=== PATIENT | male | born 1955 | race African-American/Black ===

== ENCOUNTER 2020-04-14 10:16 | Outpatient (REF) | payer MEDICARE, SELFPAY | END 2020-04-14 10:17 | disposition home or self-care (01) | LOC: HO.LAB 10:16 | PROVIDERS: Visit Provider Internal Medicine | DX: Z20.822 Contact with and (suspected) exposure to COVID-19 (principal) | CPT/HCPCS: 36415; C9803; U0003; U0005 ==

== ENCOUNTER 2020-04-28 08:34 | Outpatient (REF) | payer MEDICARE, SELFPAY | END 2020-04-28 08:35 | disposition home or self-care (01) | LOC: HO.LAB 08:34 | PROVIDERS: Visit Provider Internal Medicine | DX: Z20.822 Contact with and (suspected) exposure to COVID-19 (principal) | CPT/HCPCS: 36415; C9803; U0003; U0005 ==

== ENCOUNTER 2020-06-02 12:11 | Outpatient (REF) | payer MEDICARE, SELFPAY | END 2020-06-02 12:12 | disposition home or self-care (01) | LOC: HO.LAB 12:11 | PROVIDERS: Visit Provider Internal Medicine | DX: Z20.822 Contact with and (suspected) exposure to COVID-19 (principal) | CPT/HCPCS: 36415; C9803; U0003; U0005 ==

== ENCOUNTER 2021-05-07 09:35 | Outpatient (REF) | payer MEDICARE, SELFPAY ==
[2021-05-07 10:32] LABS: COVID-19 Test Negative (Negative)
== END 2021-05-07 09:36 | disposition home or self-care (01) ==
LOC: HO.LAB 09:35
PROVIDERS: Visit Provider Internal Medicine
DX: Z20.822 Contact with and (suspected) exposure to COVID-19 (principal)
CPT/HCPCS: 87635; C9803

== ENCOUNTER 2021-06-24 11:16 | Outpatient (REF) | payer MEDICARE, SELFPAY ==
[2021-06-24 12:06] LABS: COVID-19 Test Negative (Negative)
== END 2021-06-24 11:17 | disposition home or self-care (01) ==
LOC: HO.LAB 11:16
PROVIDERS: Visit Provider Internal Medicine
DX: Z20.822 Contact with and (suspected) exposure to COVID-19 (principal)
CPT/HCPCS: 87635; C9803

== ENCOUNTER 2021-07-06 07:50 | Outpatient (REF) | payer MEDICARE, SELFPAY ==
[2021-07-06 08:33] LABS: COVID-19 Test Negative (Negative)
== END 2021-07-06 07:51 | disposition home or self-care (01) ==
LOC: HO.LAB 07:50
PROVIDERS: Visit Provider Internal Medicine
DX: Z20.822 Contact with and (suspected) exposure to COVID-19 (principal)
CPT/HCPCS: 87635; C9803

== ENCOUNTER 2021-07-09 08:25 | Outpatient (REF) | payer MEDICARE, SELFPAY ==
[2021-07-09 08:38] LABS: MANUAL DIFF FLAG NO
[2021-07-09 08:58] LABS: Basophils Percent Auto 0.4 % (0-2); Eosinophils Percent Auto 0.6 % (0-4); Hematocrit 40.8 % (42.0-52.0); Hemoglobin 13.6 g/dl (14.0-18.0); Imm Gran Abs Auto 0.02 X10*3/uL (0.00-0.03); Imm Gran Pct Auto 0.3 % (0.0-0.4); Lymphocytes Absolute Auto 0.8 X10*3/uL (1.2-4.9); Lymphocytes Percent Auto 11.2 % (20-40); Mean Corpuscular HGB Conc 33.3 g/dl (31.0-36.0); Mean Corpuscular Hemoglobin 26.9 pg (27.0-33.0); Mean Corpuscular Volume 80.8 fL (80.0-98.0); Mean Platelet Volume 9.6 fL (9.4-12.4); Monocytes Absolute Auto 0.4 X10*3/uL (0.1-1.2); Monocytes Percent Auto 6.6 % (2-11); Neutrophils Absolute Auto 5.4 x10*3/uL (2.0-8.3); Neutrophils Percent Auto 80.9 % (45-73); Platelet Count 223 X10*3/uL (160-400); Red Blood Count 5.05 X10*6/uL (4.60-5.80); Red Cell Distribution Width 13.2 % (11.0-16.0); White Blood Count 6.7 X10*3/uL (4.8-10.8)
[2021-07-09 09:31] LABS: Alanine Aminotransferase 14 U/L (0-40); Alkaline Phosphatase 58 U/L (39-117); Anion Gap 11 (12-20); Aspartate Amino Transferase 21 U/L (5-37); Blood Urea Nitrogen 11 mg/dL (9-16); Calcium 9.6 mg/dL (8.4-10.2); Carbon Dioxide 30 mmol/L (22-29); Chloride 104 mmol/L (96-108); Cholesterol 115 mg/dL; Estimated Glomerular Filt Rate 50; Glucose Fasting 113 mg/dL (60-99); HDL Cholesterol 38 mg/dL; Iron 66 mcg/dL (45-160); LDL Cholesterol Calculated 63 mg/dl; Percent Iron Saturation 24 % (15-50); Potassium 3.7 mmol/L (3.3-5.1); Sodium 141 mmol/L (135-145); Total Iron Binding Capacity 277 mcg/dL (228-428); Total Protein 7.3 g/dL (6.5-8.0); Triglycerides 74 mg/dL; Unsaturated Iron Binding 211 ug/dL
[2021-07-09 09:51] LABS: Microalbum/Creatinine Ratio Ur 33.1 ug/mg cr
[2021-07-09 09:55] LABS: Vitamin D 25-OH Total 47.2 ng/mL (>30)
[2021-07-15 22:01] LABS: Testosterone, Free 69.5 pg/mL (35.0-155.0); Testosterone, Total 460 ng/dL (250-1100)
== END 2021-07-09 08:26 | disposition home or self-care (01) ==
LOC: HO.LAB 08:25
PROVIDERS: PCP Internal Medicine; Visit Provider Internal Medicine
DX: D50.9 Iron deficiency anemia, unspecified (principal); I10 Essential (primary) hypertension; E11.9 Type 2 diabetes mellitus without complications; E34.9 Endocrine disorder, unspecified; E55.9 Vitamin D deficiency, unspecified; E78.5 Hyperlipidemia, unspecified
CPT/HCPCS: 36415; 80053; 80061; 82043; 82306; 83540; 84402; 84403; 85025

== ENCOUNTER 2021-08-11 08:44 | Outpatient (REF) | payer MEDICARE, SELFPAY ==
[2021-08-11 09:17] LABS: COVID-19 Test Negative (Negative)
== END 2021-08-11 08:45 | disposition home or self-care (01) ==
LOC: HO.LAB 08:44
PROVIDERS: Visit Provider Internal Medicine
DX: Z20.822 Contact with and (suspected) exposure to COVID-19 (principal)
CPT/HCPCS: 87635; C9803

== ENCOUNTER 2021-12-15 07:28 | Outpatient (REF) | payer MEDICARE, SELFPAY ==
[2021-12-15 08:27] LABS: IDNOW Serial# 16C4AD1C
[2021-12-15 08:28] LABS: COVID-19 Test Negative (Negative)
== END 2021-12-15 07:29 | disposition home or self-care (01) ==
LOC: HO.LAB 07:28
PROVIDERS: Visit Provider Internal Medicine
DX: Z20.822 Contact with and (suspected) exposure to COVID-19 (principal)
CPT/HCPCS: 87635; C9803

== ENCOUNTER 2021-12-24 08:21 | Outpatient (REF) | payer MEDICARE, SELFPAY ==
[2021-12-24 08:52] LABS: MANUAL DIFF FLAG NO
[2021-12-24 09:14] LABS: Basophils Percent Auto 0.4 % (0-2); Eosinophils Absolute Auto 0.1 X10*3/uL (0.0-0.4); Eosinophils Percent Auto 1.2 % (0-4); Hematocrit 41.6 % (42.0-52.0); Hemoglobin 13.9 g/dl (14.0-18.0); Imm Gran Abs Auto 0.01 X10*3/uL (0.00-0.03); Imm Gran Pct Auto 0.2 % (0.0-0.4); Lymphocytes Absolute Auto 0.9 X10*3/uL (1.2-4.9); Lymphocytes Percent Auto 16.8 % (20-40); Mean Corpuscular HGB Conc 33.4 g/dl (31.0-36.0); Mean Corpuscular Hemoglobin 26.7 pg (27.0-33.0); Mean Corpuscular Volume 79.8 fL (80.0-98.0); Mean Platelet Volume 9.4 fL (9.4-12.4); Monocytes Absolute Auto 0.3 X10*3/uL (0.1-1.2); Monocytes Percent Auto 6.3 % (2-11); Neutrophils Absolute Auto 3.8 x10*3/uL (2.0-8.3); Neutrophils Percent Auto 75.1 % (45-73); Platelet Count 249 X10*3/uL (160-400); Red Blood Count 5.21 X10*6/uL (4.60-5.80); Red Cell Distribution Width 12.6 % (11.0-16.0); White Blood Count 5.1 X10*3/uL (4.8-10.8)
[2021-12-24 09:48] LABS: Alanine Aminotransferase 18 U/L (0-40); Albumin Level 4.2 g/dL (3.5-5.0); Alkaline Phosphatase 64 U/L (39-117); Anion Gap 14 (12-20); Aspartate Amino Transferase 23 U/L (5-37); Bilirubin Total 1.6 mg/dL (0.0-1.0); Blood Urea Nitrogen 12 mg/dL (9-16); Calcium 9.3 mg/dL (8.4-10.2); Carbon Dioxide 30 mmol/L (22-29); Chloride 99 mmol/L (96-108); Cholesterol 146 mg/dL; Estimated Glomerular Filt Rate 54; Glucose Fasting 130 mg/dL (60-99); HDL Cholesterol 42 mg/dL; Iron 91 mcg/dL (45-160); LDL Cholesterol Calculated 89 mg/dl; Percent Iron Saturation 30 % (15-50); Potassium 3.4 mmol/L (3.3-5.1); Sodium 140 mmol/L (135-145); Total Iron Binding Capacity 302 mcg/dL (228-428); Total Protein 7.7 g/dL (6.5-8.0); Triglycerides 79 mg/dL; Unsaturated Iron Binding 211 ug/dL
[2021-12-24 09:55] LABS: Vitamin D 25-OH Total 35.8 ng/mL (>30)
[2021-12-24 10:47] LABS: Creatinine Urine 139.63 mg/dL; Microalbum/Creatinine Ratio Ur 29.3 ug/mg cr
== END 2021-12-24 08:22 | disposition home or self-care (01) ==
LOC: HO.LAB 08:21
PROVIDERS: PCP Internal Medicine; Visit Provider Internal Medicine
DX: E11.9 Type 2 diabetes mellitus without complications (principal); E55.9 Vitamin D deficiency, unspecified; E78.5 Hyperlipidemia, unspecified; D64.9 Anemia, unspecified
CPT/HCPCS: 36415; 80053; 80061; 82043; 82306; 83540; 85025

== ENCOUNTER → 2022-06-09 10:02 | Outpatient (BNVA) | payer MEDICARE, SELFPAY | PROVIDERS: PCP Internal Medicine; Visit Provider Urology | DX: E11.69 Type 2 diabetes mellitus with other specified complication (principal); N52.1 Erectile dysfunction due to diseases classified elsewhere; E29.1 Testicular hypofunction; I10 Essential (primary) hypertension; Z79.899 Other long term (current) drug therapy | CPT/HCPCS: 99202 ==

== ENCOUNTER → 2022-07-20 08:46 | Outpatient (BNVA) | payer MEDICARE, SELFPAY | PROVIDERS: PCP Internal Medicine; Visit Provider Urology | DX: E11.69 Type 2 diabetes mellitus with other specified complication (principal); N52.1 Erectile dysfunction due to diseases classified elsewhere | CPT/HCPCS: 99212 ==

== ENCOUNTER → 2022-07-23 11:23 | Outpatient (BNVA) | payer MEDICARE, SELFPAY | PROVIDERS: PCP Internal Medicine; Visit Provider Urology | DX: E11.69 Type 2 diabetes mellitus with other specified complication (principal); N52.1 Erectile dysfunction due to diseases classified elsewhere | CPT/HCPCS: 99212 ==

== ENCOUNTER 2022-09-30 14:44 | Outpatient (AMB) | payer MEDICARE, SELFPAY ==
[2022-09-30 14:46] VITALS: BP 152/98; PULSE 84; O2SAT 97; BMI 27.7
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
== END 2022-09-30 15:19 | disposition home or self-care (01) ==
PROVIDERS: PCP Internal Medicine; Visit Provider Nurse Practitioner Family
DX: E11.9 Type 2 diabetes mellitus without complications (principal); I10 Essential (primary) hypertension; S06.9XAD Unspecified intracranial injury with loss of consciousness status unknown, subsequent encounter
CPT/HCPCS: 99213

== ENCOUNTER 2022-10-01 10:20 | Outpatient (REF) | payer MEDICARE, SELFPAY ==
[2022-10-01 10:34] LABS: MANUAL DIFF FLAG NO
[2022-10-01 11:53] LABS: Basophils Percent Auto 0.4 % (0-2); Eosinophils Absolute Auto 0.1 X10*3/uL (0.0-0.4); Eosinophils Percent Auto 1.7 % (0-4); Hemoglobin 13.4 g/dl (14.0-18.0); Imm Gran Abs Auto 0.02 X10*3/uL (0.00-0.03); Imm Gran Pct Auto 0.4 % (0.0-0.4); Lymphocytes Absolute Auto 0.9 X10*3/uL (1.2-4.9); Lymphocytes Percent Auto 18.4 % (20-40); Mean Corpuscular HGB Conc 33.5 g/dl (31.0-36.0); Mean Corpuscular Hemoglobin 26.8 pg (27.0-33.0); Mean Platelet Volume 10.2 fL (9.4-12.4); Monocytes Absolute Auto 0.3 X10*3/uL (0.1-1.2); Monocytes Percent Auto 7.2 % (2-11); Neutrophils Absolute Auto 3.4 x10*3/uL (2.0-8.3); Neutrophils Percent Auto 71.9 % (45-73); Platelet Count 252 X10*3/uL (160-400); Red Cell Distribution Width 13.2 % (11.0-16.0); White Blood Count 4.7 X10*3/uL (4.8-10.8)
[2022-10-01 12:28] LABS: Alanine Aminotransferase 19 U/L (0-40); Alkaline Phosphatase 64 U/L (39-117); Anion Gap 14 (12-20); Aspartate Amino Transferase 20 U/L (5-37); Bilirubin Total 1.3 mg/dL (0.0-1.0); Blood Urea Nitrogen 10 mg/dL (9-16); Carbon Dioxide 27 mmol/L (22-29); Chloride 104 mmol/L (96-108); Cholesterol 148 mg/dL; Estimated Glomerular Filt Rate 53; Glucose Fasting 114 mg/dL (60-99); HDL Cholesterol 45 mg/dL; Iron 77 mcg/dL (45-160); LDL Cholesterol Calculated 83 mg/dl; Percent Iron Saturation 29 % (15-50); Potassium 3.2 mmol/L (3.3-5.1); Sodium 142 mmol/L (135-145); Total Iron Binding Capacity 265 mcg/dL (228-428); Total Protein 7.5 g/dL (6.5-8.0); Triglycerides 104 mg/dL; Unsaturated Iron Binding 188 ug/dL
[2022-10-01 12:29] LABS: Creatinine Urine 233.06 mg/dL; Microalbum/Creatinine Ratio Ur 199.9 ug/mg cr
[2022-10-01 12:45] LABS: Vitamin D 25-OH Total 27.4 ng/mL (>30)
== END 2022-10-01 10:21 | disposition home or self-care (01) ==
LOC: HO.LAB 10:20
PROVIDERS: PCP Internal Medicine; Visit Provider Internal Medicine
DX: D64.9 Anemia, unspecified (principal); E11.9 Type 2 diabetes mellitus without complications; E55.9 Vitamin D deficiency, unspecified; E78.5 Hyperlipidemia, unspecified
CPT/HCPCS: 36415; 80053; 80061; 82043; 82306; 83540; 85025

== ENCOUNTER 2022-12-01 12:36 | Outpatient (REF) | payer MEDICARE, SELFPAY ==
--- NOTE | ~2022-12-01 | MR_ITS ---
EXAMINATION: MR BRAIN WITHOUT CONTRAST CLINICAL INFORMATION: Headaches and memory problems. COMPARISON: None. TECHNIQUE: Multiplanar, multisequence imaging of the brain was performed without contrast. FINDINGS: No diffusion abnormalities are identified to suggest an acute or subacute infarct. There is moderate generalized parenchymal volume loss and concordant ex vacuo prominence of the ventricles. No mass effect or midline shift is seen. Fobm-mk-lcttdqsv chronic white matter microangiopathic changes noted. No extra-axial fluid collections are seen. The brainstem and cerebellum are normal. The gradient refocused acquisition is normal. The craniovertebral junction, marrow signal, and midline structures are normal. The major intracranial flow voids at the level of the [place] are preserved. The dural venous sinus flow voids are maintained. The mastoid air cells are well aerated. There are small retention cysts in the left maxillary antrum with mild ethmoid sinus mucosal thickening. MR/MR head/brain wo con IMPRESSION: No acute intracranial process. Moderate generalized parenchymal volume loss and ewhm-cv-bonyuqjz chronic white matter microangiopathy.
== END 2022-12-01 12:37 | disposition home or self-care (01) ==
LOC: HO.MRI 12:36
PROVIDERS: PCP Internal Medicine; Visit Provider Nurse Practitioner Family
DX: S06.9XAA Unspecified intracranial injury with loss of consciousness status unknown, initial encounter (principal)
CPT/HCPCS: 70551

== ENCOUNTER 2022-12-20 09:33 | Outpatient (AMB) | payer SELFPAY ==
[2022-12-20 09:34] VITALS: BP 152/84; PULSE 73; O2SAT 98; BMI 27.3
--- NOTE | 2022-12-20 09:34 | A.OFFPC_ITS ---
Vital Signs 12/20/22 09:34 Height 5 ft 10 in Weight 190 lb BMI 27.3 BP 152/84 H Blood Pressure Location Lt brachial Position Sitting Pulse 73 Pulse Source Pulse Oximeter Pulse Oximetry (%) 98 Oxygen Delivery Method Room Air Intake Visit Reasons: sinuses issue Allergies No Known Allergies Allergy (Verified 12/20/22 09:34) Tobacco use date assessed: 09/30/22 Fall risk assessment: No Falls in past year Last assessed Fall Risk: 12/20/22 Dental Screening Dental Screen Date: 12/20/22 Did you have a dental visit in the last 12 months?: Yes Did you have a dental problem in the last 6 months where you did not have access to dental care?: No Was dental information given to patient?: Patient has dentist HPI HPI Comments History of Present Illness Details 67-year-old male past medical history si gnificant for TBI, ED, diabetes mellitus, hypertension. Patient of Dr. Oscar patient presents today for same-day visit for sinus issues. Patient reports cannot explain how he is feeling. Feels like sinus problems. Denies nasal congestion. Denies fevers,chills, shortness of breath.States occasional dry cough x 4 days. Flu shot given in office today as requested by patient. [facility] Medical History Testosterone deficiency Neck pain Hypovitaminosis D Iron deficiency anemia Diabetes mellitus Essential hypertension Surgical History History of surgery of head Family History Mother Hypertension Father Hypertension Pneumonia Social History Housing: Apartment Alcohol intake: current Alcohol intake frequency: holidays/special occasions only Alcohol type: wine Patient Tobacco Use Status: Never used Tobacco e-Cigarette/Vaping Use: Never Used Second Hand Smoke Exposure: No service: Yes Current occupational status: employed Current occupational exposures/hazards: No Cognitive needs: No Hearing needs: No Vision needs: Yes Questionnaire PHQ-9 Over the last 2 weeks, how often have you been bothered by any of the following problems? 1. Little interest or pleasure in doing things: not at all 2. Feeling down, depressed, or hopeless: not at all 3. Trouble falling or staying asleep, or sleeping too much: not at all 4. Feeling tired or having little energy: not at all 5. Poor appetite or overeating: not at all 6. Feeling bad about yourself - or that you are a failure or have let yourself or your family down: not at all 7. Trouble concentrating on things, such as reading the newspaper or watching television: not at all 8. Moving or speaking so slowly that other people could have noticed. Or the opposite - being so fidgety or restless that you have been moving around a lot more than usual: not at all 9. Thoughts that you would be better off or of hurting yourself in some way: not at all Total score: 0 Depression Screening Interpretation: Negative Depression Screening Done: Yes 39881 - PHQ-9 Billing: Yes Source: Developed by Drs. Catrachito Renee, Flora Peres, Roel Mathew and colleagues, with an educational naya from [employer]. Thrive Questionnaire Date Thrive assessed: 09/30/22 AUDIT C Alcohol Use Questionnaire (AUDIT-C) 1. How often do you have a drink containing alcohol?: Monthly or less 2. How many drinks containing alcohol do you have on a typical day when you are drinking?: 1 or 2 3. How often do you have six or more drinks on one occasion?: Never Total Score: 1 Score Reviewed/Action Taken: Yes TASH-7 AMB Questionnaire TASH-7 Date TASH - 7 assessed: 09/30/22 Source: Developed by Drs. Catrachito Renee, Flora Peres, Roel Mathew and colleagues, with an educational naya from [employer]. Review of Systems Const Denies chills, Reports fatigue, Denies fever(s) and Denies poor appetite Eyes Denies no additional complaints ENT Reports Normal hearing present Card Denies chest pain, Denies syncope, Denies rapid heart rate and Denies dyspnea Resp Reports cough and Denies dyspnea GI Denies change in stool character, Denies constipation, Denies diarrhea, Denies nausea and Denies vomiting Denies dysuria, Denies urinary frequency and Denies urinary urgency Neuro Reports Normal hearing present, Denies confusion and Denies syncope Psych Denies confusion Endo Reports fatigue Physical exam (Primary Care) Vital Signs: Last Vital Signs Pulse 73 12/20/22 09:34 BP 152/84 H 12/20/22 09:34 Pulse Ox 98 12/20/22 09:34 Oxygen Delivery Method Room Air 12/20/22 09:34 BMI result Body Mass Index 27.3 Tobacco/Smoking Status: Tobacco use Status Tobacco use date assessed 09/30/22 12/20/22 09:35 Patient Tobacco Use Status Never used Tobacco 12/20/22 09:35 e-Cigarette/Vaping Use Never Used 12/20/22 09:35 PHQ-9: PHQ-9 Score PHQ-9: Total score 0 12/20/22 09:56 Depression Screening Interpretation: Negative Thrive Assessment: Date of Thrive Assessment Date Thrive assessed 09/30/22 12/20/22 09:35 Const General: No confusion Orientation/consciousness: No confusion HENMT Head: Yes normocephalic and Yes atraumatic Ears: external ears normal and TM's normal bilaterally General nose exam: Normal external nose present and Normal nasal mucous membranes and turbinates present Face and sinus: Yes normal facial exam and Yes sinuses nontender Mouth: moist mucous membranes Throat: Yes posterior oropharynx normal and Yes tonsils normal Eyes Conjunctivae: conjunctivae normal Chest Chest palpation & inspection: normal inspection of the chest Resp Effort & Inspection: normal respiratory effort Auscultation: clear to auscultation bilaterally, no crackles, no rhonchi and no wheezes Cardio Rate: regular rate Rhythm: regular rhythm Heart sounds: S1 normal heart sound present and S2 normal heart sound present GI Inspection: Yes normal to inspection Neuro General: No confusion Cranial nerves: Yes Normal hearing present Extrem General: No edema Office Procedures Flu Questionnaire Does the patient have a severe egg allergy?: No Does the patient have severe life threatening allergies?: No Does the patient have a fever or illness today?: No Has the patient ever had Guillain-[place] Syndrome?: No Has the patient ever had any past reaction to a flu shot?: No Results AMB Hemoglobin A1c AMB Hemoglobin A1c 6.7 % Last Edit by YENI Dockery on 12/20/22 09:56 Immunizations flu vacc [id number] 6mos up(PF) 60 mcg(15 mcgx4)/0.5 mL IM syringe Performing Provider: Mya O'Karen, DUPLEX TRIMMER Performing Location: [facility] Administered by: YENI Dockery on 12/20/22 10:01 Dose Route Admin Location Dispensed Lot Number Expiration Date NDC Quilt Maker 0.5 mL IM Left Deltoid 0.5 mL [id number] 09/04/23 [id number] VIS Given Date VIS Provided VIS Publication Date 12/20/22 Single Vaccine 20 Eligibility Eligibility Date Funding Source Not [facility] Eligible 12/20/22 Private Results Reviewed Results Reviewed: Laboratory Last Values Hgb A1c (Clinic) 6.7 % (4.0-6.0) H 12/20/22 09:35 Assessment and Plan Assessment & Plan (1) Diabetes mellitus: Code(s): E11.9 - Type 2 diabetes mellitus without complications Plan: A1c 6.7% Patient educated to decrease the amount of carbohydrate intake such as pasta, bread, rice and potatoes are all sugar in addition to the sweet stuff. Remember that fruits are good but they also have sugar.Hemoglobin A1c goal of less than 6.5% (2) Cough: Code(s): R05.9 - Cough, unspecified Plan: And on it takes sent to patient's pharmacy p.r.n. for cough. Patient advised to stay well hydrated and rest. Patient advised if he develops any fever can treat symptomatically with antipyretic such as Tylenol. Flu/COVID/RSV swab ordered. (3) Essential hypertension: Code(s): I10 - Essential (primary) hypertension Plan: Continue on hydrochlorothiazide and amlodipine. Follow low-salt diet exercise. Orders: Orders Influenza [id number] Immunization Today Z23 - Encounter for immunization AMB Hemoglobin A1c Today E11.9 - Type 2 diabetes mellitus without complications SARS-CoV2/FLU/RSV Today R05.9 - Cough, unspecified Medications: New benzonatate 100 mg PO TID PRN 20 caps 0RF cough R05.9 - Cough, unspecified Coding Level of Care Code Est Pt Level 3 (11411) Diagnoses Diabetes mellitus E11.9 Cough R05.9 Essential hypertension I10
== END 2022-12-20 10:05 | disposition home or self-care (01) ==
PROVIDERS: PCP Internal Medicine; Visit Provider Nurse Practitioner Family
DX: E11.9 Type 2 diabetes mellitus without complications (principal); Z23 Encounter for immunization
CPT/HCPCS: 83036; 90471; 90686; 99213

== ENCOUNTER 2022-12-20 10:09 | Outpatient (REF) | payer MEDICARE, OTHER, SELFPAY ==
[2022-12-20 11:28] LABS: Influenza A PCR NEGATIVE (Negative); Influenza B PCR NEGATIVE (Negative); Resp Syncy Virus RNA Qual PCR NEGATIVE (Negative); SARS COV2 PCR INHOUSE NEGATIVE (Negative)
== END 2022-12-20 10:10 | disposition home or self-care (01) ==
LOC: HO.LAB 10:09
PROVIDERS: PCP Internal Medicine; Visit Provider Nurse Practitioner Family
DX: Z11.52 Encounter for screening for COVID-19 (principal); Z20.822 Contact with and (suspected) exposure to COVID-19; R05.9 Cough, unspecified
CPT/HCPCS: 0241U

== ENCOUNTER 2023-01-21 10:54 | Outpatient (AMB) | payer MEDICARE, SELFPAY ==
--- NOTE | 2023-01-21 11:57 | MHC.OFFVIS ---
Intake Intake Visit Reasons: 6m follow up Allergies No Known Allergies Allergy (Verified 12/20/22 09:34) HPI HPI Comments History of Present Illness Details Kevin is a pleasant male. He is a patient of Dr. Wong and seen by Dr. Cezar espinosa at the [facility]. He seen for the following urologic conditions - erectile dysfunction Current management with injection therapy Stable Continue prescriptions Erectile Dysfunction He presents today for - further evaluation of erectile dysfunction. Current treatment includes - treatment for blood pressure control with amlodipine and lisinopril At the time of initial evaluation he experiences - erection is partial and insufficient for vaginal penetration - does not climax Symptoms have been present for/since - progressive over past number of years Nocturnal erections do not occur Prior therapies include - has maximized oral on demand therapy Treatment side effects include - none Associated Medical Conditions include hypertension, diabetes - borderline diagnosis Physical Performance Status is able to walk 200 yd and can ascend 2 flights of stairs easily Atherosclerosis Cardiovascular Disease Risk - normal lipid profile, HbA1c 04/29 6.5% Medications include(s) antihypertensive medications Investigations include normal testosterone level - 07/26 T 460 Therapeutic plan includes - continue injection therapy PFSH Medical History Testosterone deficiency Neck pain Hypovitaminosis D Iron deficiency anemia Diabetes mellitus Essential hypertension Surgical History History of surgery of head Family History Mother Hypertension Father Hypertension Pneumonia Social History Housing: Apartment Alcohol intake: current Alcohol intake frequency: holidays/special occasions only Alcohol type: wine Patient Tobacco Use Status: Never used Tobacco e-Cigarette/Vaping Use: Never Used Second Hand Smoke Exposure: No service: Yes Current occupational status: employed Current occupational exposures/hazards: No Cognitive needs: No Hearing needs: No Vision needs: Yes Review of Systems Const Denies chills and Denies fever(s) Card Reports no additional complaints and Denies syncope Resp Denies cough GI Denies abdominal pain and Denies heartburn Reports as per HPI and Denies change in libido Neuro Denies syncope Psych Denies change in libido Endo Denies change in libido Physical Exam Const General: cooperative, healthy appearing, comfortable and no acute distress Orientation/consciousness: patient oriented x3 HEENT Face and sinus: Yes normal facial exam Mouth: moist mucous membranes Neck Neck: Yes normal visual inspection, Yes full ROM and Yes trachea midline Chest Chest palpation & inspection: normal inspection of the chest Resp Effort & Inspection: normal respiratory effort, able to speak in complete sentences and no respiratory distress GI Inspection: Yes normal to inspection Back/Spine/Pelvis Cervical Spine: normal cervical lordosis Thoracic/Lumbar Spine: thoracic and lumbar spine normal to inspection Skin General skin exam: no rashes or lesions noted Neuro General: patient oriented x3, gait normal, tone normal and moves all extremities Extrem General: Yes normal to inspection and Yes capillary refill normal Assessment & Plan Assessment & Plan (1) Erectile dysfunction associated with type 2 diabetes mellitus: Code(s): E11.69 - Type 2 diabetes mellitus with other specified complication; N52.1 - Erectile dysfunction due to diseases classified elsewhere Plan Six month follow-up Patient Instructions: Imaging studies, laboratory and physical exam results were discussed and reviewed in detail. No major barriers to patient understanding were identified. An opportunity to ask questions regarding the treatment plan was provided. All questions were answered. The patient expressed understanding and agreement with the above treatment plan. The patient is aware they should contact our office by phone for worsening of their current condition or the appearance of new urologic symptoms. Compliance is encouraged with any medications and followup testing that is ordered. It is a privilege to participate in the urologic care of your patient. If you have any questions or concerns regarding treatment for the above conditions, or other urologic issues, please do not hesitate to contact me. The office telephone contact is [phone]. This note is constructed using voice recognition software. While every effort has been made to ensure accuracy marine drafter errors may have been included. Yours sincerely, Dr Robbie Robert MD, [facility] - Urology Providers of Expert, Compassionate Care for the Genitourinary System Coding Level of Care Code Est Pt Level 4 (64697) Diagnoses Erectile dysfunction associated with type 2 diabetes mellitus E11.69; N52.1
== END 2023-01-21 12:20 | disposition home or self-care (01) ==
PROVIDERS: Visit Provider Urology
DX: E11.69 Type 2 diabetes mellitus with other specified complication (principal); N52.1 Erectile dysfunction due to diseases classified elsewhere
CPT/HCPCS: 99213

== ENCOUNTER → 2023-01-21 10:54 | Outpatient (BNVA) | payer MEDICARE, SELFPAY | PROVIDERS: Visit Provider Urology | DX: E11.69 Type 2 diabetes mellitus with other specified complication (principal); I10 Essential (primary) hypertension; N52.1 Erectile dysfunction due to diseases classified elsewhere | CPT/HCPCS: 99212 ==

== ENCOUNTER → 2023-02-17 09:39 | Outpatient (REF) | payer MEDICARE, SELFPAY | LOC: HO.SL 09:39 | PROVIDERS: PCP Internal Medicine; Visit Provider Nurse Practitioner Family | DX: G47.10 Hypersomnia, unspecified (principal); R51.9 Headache, unspecified; R40.0 Somnolence | CPT/HCPCS: 95806 ==

== ENCOUNTER → 2023-02-17 10:14 | Outpatient (BNV) | payer MEDICARE, SELFPAY | PROVIDERS: PCP Internal Medicine; Visit Provider Internal Medicine | DX: G47.10 Hypersomnia, unspecified (principal) | CPT/HCPCS: 95806 ==

== ENCOUNTER 2023-04-18 10:13 | Outpatient (AMB) | payer OTHER, SELFPAY ==
[2023-04-18 10:17] VITALS: BP 146/80; BMI 27.8
--- NOTE | 2023-04-18 10:17 | MHC.PC.OV ---
Vital Signs 04/18/23 10:17 04/18/23 10:40 Height 5 ft 10 in Weight 194 lb BMI 27.8 BP 146/80 H 150/80 H Blood Pressure Location Lt brachial Lt brachial Position Sitting Sitting Intake Visit Reasons: 4mth f/u Intake Note: Patient here for a 4 month follow up [employer] Flatbed Driver Required: No Accompanied by: Self / Same As Patient Allergies No Known Allergies Allergy (Verified 04/18/23 10:28) Medication List - Last Reconciled 04/18/23 by Mariel Wong MD amlodipine 10 mg PO DAILY [cervical pillow As directed] cholecalciferol (vitamin D3) 50 mcg PO DAILY ferrous sulfate 27 mg PO DAILY hydrochlorothiazide 25 mg PO DAILY lisinopril 40 mg PO DAILY metformin 500 mg PO DAILY Tobacco use date assessed: 04/18/23 Fall risk assessment: No Falls in past year Last assessed Fall Risk: 04/18/23 Dental Screening Dental Screen Date: 04/18/23 Did you have a dental visit in the last 12 months?: No Did you have a dental problem in the last 6 months where you did not have access to dental care?: No Was dental information given to patient?: Patient has dentist HPI HPI Comments History of Present Illness Details This is a 67-year-old male with diabetes mellitus type 2, hypertension, iron-deficiency anemia and low vitamin-D that comes today for follow-up on his conditions. Blood pressure elevated but he declines any change in medications and also declines to be recheck in 3 weeks by nurse navigator. A1c within goal. On ferrous sulfate for his anemia and vitamin-D supplements for his low vitamin-D. Patient does not want to labs at the moment but is willing to do it for the next office visit. He also has erectile dysfunction and wants a referral for Urology. [facility] Medical History Testosterone deficiency Neck pain Hypovitaminosis D Iron deficiency anemia Diabetes mellitus Essential hypertension Surgical History History of surgery of head Family History Mother Hypertension Father Hypertension Pneumonia Social History Housing: Apartment Alcohol intake: current Alcohol intake frequency: holidays/special occasions only Alcohol type: wine Patient Tobacco Use Status: Never used Tobacco e-Cigarette/Vaping Use: Never Used Second Hand Smoke Exposure: No service: Yes Current occupational status: employed Current occupational exposures/hazards: No Cognitive needs: No Hearing needs: No Vision needs: Yes Questionnaire PHQ-9 Over the last 2 weeks, how often have you been bothered by any of the following problems? 1. Little interest or pleasure in doing things: not at all 2. Feeling down, depressed, or hopeless: not at all 3. Trouble falling or staying asleep, or sleeping too much: not at all 4. Feeling tired or having little energy: not at all 5. Poor appetite or overeating: not at all 6. Feeling bad about yourself - or that you are a failure or have let yourself or your family down: not at all 7. Trouble concentrating on things, such as reading the newspaper or watching television: not at all 8. Moving or speaking so slowly that other people could have noticed. Or the opposite - being so fidgety or restless that you have been moving around a lot more than usual: not at all 9. Thoughts that you would be better off or of hurting yourself in some way: not at all Total score: 0 Depression Screening Interpretation: Negative Depression Screening Done: Yes 09447 - PHQ-9 Billing: Yes Source: Developed by Drs. Catrachito Renee, Flora Peres, Roel Mathew and colleagues, with an educational naya from [employer]. Thrive Questionnaire Date Thrive assessed: 04/18/23 I am a: Patient What is your living situation today?: I have a steady place to live Within the past 12 months, did the food you bought not last and you didn't have the money to get more?: Never true Within the past 12 months, did you worry whether your food would run out before you got money to buy more?: Never true Do you have trouble paying for medicines?: No Do you have trouble getting transportation to medical appointments?: No Do you have trouble paying your heating and electricity bill?: No Do you have trouble taking care of your child, family member or friend?: No Do you have trouble with day-to-day activities such as bathing, preparing meals, shopping, managing finances, etc.?: No Are you currently unemployed and looking for a job?: No Are you interested in more education?: No Please select the resources that you would like help with: None Currently or been in a relationship where the following occur: no concerns reported THRIVE Score: 0 AUDIT C Alcohol Use Questionnaire (AUDIT-C) 1. How often do you have a drink containing alcohol?: Monthly or less 2. How many drinks containing alcohol do you have on a typical day when you are drinking?: 1 or 2 3. How often do you have six or more drinks on one occasion?: Never Total Score: 1 TASH-7 AMB Questionnaire TASH-7 Date TASH - 7 assessed: 04/18/23 Feeling nervous, anxious, or on edge: 0 = Not at all Not being able to stop or control worryin = Not at all Worrying too much about different things: 0 = Not at all Trouble relaxin = Not at all Being so restless that it is hard to sit still: 0 = Not at all Becoming easily annoyed or irritable: 0 = Not at all Feeling afraid as if something awful might happen: 0 = Not at all Total TASH-7 score (0-4 normal; 5-9 mild; 10-14 moderate; 15-21 severe): 0 Source: Developed by Drs. Catrachito Renee, Flora Peres, Roel Mathew and colleagues, with an educational naya from [employer]. TASH-7 Assessment Billing TASH-7 Assessment Tool: TASH-7 Assessment 31170 Review of Systems Const All systems reviewed & are unremarkable except as noted in HPI and below Eyes Reports no additional complaints, Denies change in vision and Denies other visual disturbances Card Denies chest pain at rest, Denies chest pain with activity, Denies edema, Denies irregular heart rhythm, Denies claudication, Denies dyspnea, Denies dyspnea on exertion, Denies orthopnea, Denies paroxysmal nocturnal dyspnea and Denies slow heart rate Resp Denies cough, Denies dyspnea and Denies dyspnea on exertion GI Denies abdominal pain, Denies change in bowel habits, Denies excessive flatus, Denies nausea and Denies vomiting Denies urinary hesitancy, Denies urinary incontinence and Denies urinary urgency Musc Denies abnormal gait, Denies atrophy, Denies deformity and Denies limited range of motion Skin/Breast Denies bleeding lesions, Denies changing lesions and Denies rash Neuro Denies abnormal gait and Denies lack of coordination Physical exam (Primary Care) Vital Signs: Last Vital Signs BP 146/80 H 04/18/23 10:17 BMI result Body Mass Index 27.8 Tobacco/Smoking Status: Tobacco use Status Tobacco use date assessed 04/18/23 04/18/23 10:26 Patient Tobacco Use Status Never used Tobacco 04/18/23 10:26 e-Cigarette/Vaping Use Never Used 04/18/23 10:26 PHQ-9: PHQ-9 Score PHQ-9: Total score 0 04/18/23 10:26 Depression Screening Interpretation: Negative Thrive Assessment: Date of Thrive Assessment Date Thrive assessed 04/18/23 04/18/23 10:26 Currently or been in a relationship where the following occur: no concerns reported Eyes General: appearance normal, both eyes and all related structures Eyelids: Yes eyelids normal Conjunctivae: conjunctivae normal Neck Neck: Yes normal visual inspection and Yes supple Resp Effort & Inspection: normal respiratory effort Auscultation: clear to auscultation bilaterally Cardio Jugular venous distension: no JVD Rate: regular rate Rhythm: regular rhythm Heart sounds: S1 normal heart sound present and S2 normal heart sound present Extrem General: Yes full ROM Psych Affect: Hostile affect present Attitude: Avoids eye contact (attititude/behavior) Results AMB Hemoglobin A1c AMB Hemoglobin A1c 6.9 % Last Edit by YENI Johnson on 04/18/23 10:28 Assessment and Plan Assessment & Plan (1) Diabetes mellitus: Code(s): E11.9 - Type 2 diabetes mellitus without complications Plan: Continue metformin. A1c goal is equal or less than 7%. (2) Essential hypertension: Code(s): I10 - Essential (primary) hypertension Plan: Continue lisinopril, amlodipine and hydrochlorothiazide. Blood pressure goal is equal or less than 130/80. (3) Iron deficiency anemia: Code(s): D50.9 - Iron deficiency anemia, unspecified Plan: Continue ferrous sulfate. (4) Hypovitaminosis D: Code(s): E55.9 - Vitamin D deficiency, unspecified Plan: Continue vitamin-D supplements. (5) Erectile dysfunction: Code(s): N52.9 - Male erectile dysfunction, unspecified Plan: Referred to urology. Orders: Orders Lipid Panel 5 Months E78.5 - Hyperlipidemia, unspecified Complete Blood Count Auto Diff 5 Months D64.9 - Anemia, unspecified Vitamin D 25-OH Total 5 Months E55.9 - Vitamin D deficiency, unspecified Comprehensive [place]. Panel Fast 5 Months E11.9 - Type 2 diabetes mellitus without complications AMB Hemoglobin A1c Today E11.9 - Type 2 diabetes mellitus without complications Microalbumin, Random (w Creat) 5 Months E11.9 - Type 2 diabetes mellitus without complications IRON PROFILE 5 Months D64.9 - Anemia, unspecified Referrals Urology Referral E11.69 - Type 2 diabetes mellitus with other specified complication, N52.1 - Erectile dysfunction due to diseases classified elsewhere Medications: New [id number] 3.5mg-400 unit- 5,000 unit/gram (Neosporin ([id number])) 1 appl topical DAILY 2 weeks 14.2 grams 0RF Coding Level of Care Code Est Pt Level 4 (45924) Diagnoses Diabetes mellitus E11.9 Essential hypertension I10 Iron deficiency anemia D50.9 Hypovitaminosis D E55.9 Erectile dysfunction N52.9 Additional Codes TASH-7 Assessment Billing - TASH-7 Assessment Tool: TASH-7 Assessment 61739 ([id number]) Time Spent (min) 23
[2023-04-18 10:40] VITALS: BP 150/80
== END 2023-04-18 10:37 | disposition home or self-care (01) ==
PROVIDERS: PCP Internal Medicine; Visit Provider Internal Medicine
DX: E11.9 Type 2 diabetes mellitus without complications (principal); I10 Essential (primary) hypertension; D50.9 Iron deficiency anemia, unspecified; E55.9 Vitamin D deficiency, unspecified; N52.9 Male erectile dysfunction, unspecified
CPT/HCPCS: 83036; 99214

== ENCOUNTER 2023-07-22 11:06 | Outpatient (AMB) | payer MEDICARE, SELFPAY ==
--- NOTE | 2023-07-22 11:26 | MHC.OFFVIS ---
Intake Visit Reasons: 6m follow up Intake Note: Patient is present for Follow Up Erectile Dysfunction Urology Med: Injection Therapy Antibiotic Allergy: None Blood Thinner: None Cardiac Rehabilitation Program Director Required: No Accompanied by: Self / Same As Patient Allergies No Known Allergies Allergy (Verified 07/22/23 11:32) HPI Comments Details: Kevin is a pleasant male. He is a patient of Dr. Wong and seen by Dr. Cezar espinosa at the [facility]. He seen for the following urologic conditions - erectile dysfunction Current management with injection therapy Reviewed use of Edex Obtains medication through [facility] Does display knowledge for use Erectile Dysfunction He presents today for - further evaluation of erectile dysfunction. Current treatment includes - treatment for blood pressure control with amlodipine and lisinopril At the time of initial evaluation he experiences - erection is partial and insufficient for vaginal penetration - does not climax Symptoms have been present for/since - progressive over past number of years Nocturnal erections do not occur Prior therapies include - has maximized oral on demand therapy Treatment side effects include - none Associated Medical Conditions include hypertension, diabetes - borderline diagnosis Physical Performance Status is able to walk 200 yd and can ascend 2 flights of stairs easily Atherosclerosis Cardiovascular Disease Risk - normal lipid profile, HbA1c 04/29 6.5% Medications include(s) antihypertensive medications Investigations include normal testosterone level - 07/26 T 460 Therapeutic plan includes - continue injection therapy PFSH Medical History Testosterone deficiency Neck pain Hypovitaminosis D Iron deficiency anemia Diabetes mellitus Essential hypertension Surgical History History of surgery of head Family History Mother Hypertension Father Hypertension Pneumonia Social History Housing: Apartment Alcohol intake: current Alcohol intake frequency: holidays/special occasions only Alcohol type: wine Patient Tobacco Use Status: Never used Tobacco e-Cigarette/Vaping Use: Never Used Second Hand Smoke Exposure: No service: Yes Current occupational status: employed Current occupational exposures/hazards: No Cognitive needs: No Hearing needs: No Vision needs: Yes Review of Systems Const Denies chills and Denies fever(s) Card Reports no additional complaints and Denies syncope Resp Denies cough GI Denies abdominal pain and Denies heartburn Reports as per HPI and Denies change in libido Neuro Denies syncope Psych Denies change in libido Endo Denies change in libido Physical Exam Const General: cooperative, healthy appearing, comfortable and no acute distress Orientation/consciousness: patient oriented x3 HEENT Face and sinus: Yes normal facial exam Mouth: moist mucous membranes Neck Neck: Yes normal visual inspection, Yes full ROM and Yes trachea midline Chest Chest palpation & inspection: normal inspection of the chest Resp Effort & Inspection: normal respiratory effort, able to speak in complete sentences and no respiratory distress GI Inspection: Yes normal to inspection Back/Spine/Pelvis Cervical Spine: normal cervical lordosis Thoracic/Lumbar Spine: thoracic and lumbar spine normal to inspection Skin General skin exam: no rashes or lesions noted Neuro General: patient oriented x3, gait normal, tone normal and moves all extremities Extrem General: Yes normal to inspection and Yes capillary refill normal Assessment & Plan Assessment & Plan (1) Erectile dysfunction associated with type 2 diabetes mellitus: Code(s): E11.69 - Type 2 diabetes mellitus with other specified complication; N52.1 - Erectile dysfunction due to diseases classified elsewhere Category: Medical Plan Six-month follow-up Patient Instructions: Imaging studies, laboratory and physical exam results were discussed and reviewed in detail. No major barriers to patient understanding were identified. An opportunity to ask questions regarding the treatment plan was provided. All questions were answered. The patient expressed understanding and agreement with the above treatment plan. The patient is aware they should contact our office by phone for worsening of their current condition or the appearance of new urologic symptoms. Compliance is encouraged with any medications and followup testing that is ordered. It is a privilege to participate in the urologic care of your patient. If you have any questions or concerns regarding treatment for the above conditions, or other urologic issues, please do not hesitate to contact me. The office telephone contact is [phone]. This note is constructed using voice recognition software. While every effort has been made to ensure accuracy die finisher forging errors may have been included. Yours sincerely, Dr Robbie Robert MD, [facility] - Urology Providers of Expert, Compassionate Care for the Genitourinary System Coding Level of Care Code Est Pt Level 3 (22509) Diagnoses Erectile dysfunction associated with type 2 diabetes mellitus E11.69; N52.1
== END 2023-07-22 11:56 | disposition home or self-care (01) ==
PROVIDERS: PCP Internal Medicine; Visit Provider Urology
DX: E11.69 Type 2 diabetes mellitus with other specified complication (principal); N52.1 Erectile dysfunction due to diseases classified elsewhere
CPT/HCPCS: 99213

== ENCOUNTER → 2023-07-22 11:06 | Outpatient (BNVA) | payer MEDICARE, SELFPAY | PROVIDERS: PCP Internal Medicine; Visit Provider Urology | DX: E11.69 Type 2 diabetes mellitus with other specified complication (principal); N52.1 Erectile dysfunction due to diseases classified elsewhere | CPT/HCPCS: 99212 ==